=== PATIENT | male | born 1970 | race African-American/Black ===

== ENCOUNTER 2017-09-17 01:12 | Emergency (ER) | payer SELFPAY ==
[2017-09-17] MEDS ORDERED: HYDROcodone/Acetaminophen 10/325 mg Tablet ONE (01:38)
[2017-09-17] MEDS ORDERED: Dexamethasone 4 MG TAB ONE (01:38)
[2017-09-17] MEDS ORDERED: Ibuprofen 800 MG TAB ONE (01:38)
== END 2017-09-17 01:42 | disposition home or self-care (01) ==
LOC: MADERS 01:12
DX: M70.20 Olecranon bursitis, unspecified elbow (principal); F17.210 Nicotine dependence, cigarettes, uncomplicated
CPT/HCPCS: 99283; J8540

== ENCOUNTER 2018-10-29 19:52 | Emergency (ER) | payer SELFPAY ==
--- NOTE | 2018-10-29 21:10 | RAD ---
LEFT KNEE TWO VIEWS: 10/29/18 COMPARISON: None. HISTORY: Knee swelling for two weeks. FINDINGS: There is postoperative hardware associated with the patella. There is severe patellofemoral joint spa ce narrowing with posterior patellar osteophyte formation. No acute fracture or dislocation. Small k nee joint effusion noted. IMPRESSION: Small knee joint effusion. Postoperative changes with no acute fracture or dislocation. POS: [facility]
[2018-10-29] MEDS ORDERED: Ibuprofen 800 MG TAB ONE (21:14)
[2018-10-29] MEDS ORDERED: Dexamethasone 4 MG TAB ONE (21:14)
[2018-10-29] MEDS ORDERED: HYDROcodone/Acetaminophen 10/325 mg Tablet ONE (21:14)
[2018-10-29] MEDS ORDERED: Acetaminophen 325 MG TAB ONE (21:14)
--- NOTE | 2018-10-29 21:31 | RAD ---
TWO VIEWS OF THE RIGHT KNEE: 10/29/18 COMPARISON: None. HISTORY: Pain and swelling. FINDINGS: There is a small nonspecific knee joint effusion. There is prominent patellofemoral change with poste rior patellar osteophyte formation. No fracture or dislocation. IMPRESSION: Patellofemoral joint space narrowing/degenerative change with small knee joint effusion. No acute fra cture or dislocation. POS: [facility]
== END 2018-10-29 21:25 | disposition home or self-care (01) ==
LOC: MADERS 19:52
DX: M13.0 Polyarthritis, unspecified (principal); F17.210 Nicotine dependence, cigarettes, uncomplicated
CPT/HCPCS: J8540

== ENCOUNTER 2018-11-17 22:25 | Emergency (ER) | payer SELFPAY ==
[2018-11-17] MEDS ORDERED: Ibuprofen 800 MG TAB ONE (22:51)
[2018-11-17] MEDS ORDERED: HYDROcodone/Acetaminophen 5/325 mg Tablet ONE (22:51)
== END 2018-11-17 23:00 | disposition home or self-care (01) ==
LOC: MADERS 22:25
DX: S86.911A Strain of unspecified muscle(s) and tendon(s) at lower leg level, right leg, initial encounter (principal); F17.210 Nicotine dependence, cigarettes, uncomplicated; I10 Essential (primary) hypertension; X50.9XXA Other and unspecified overexertion or strenuous movements or postures, initial encounter
CPT/HCPCS: 99283

== ENCOUNTER 2021-02-19 10:20 | Outpatient (CLI) | payer OTHER | END 2021-02-19 10:21 | disposition home or self-care (01) | LOC: MADRAD 10:20 | PROVIDERS: ATTEND Family Medicine | DX: M65.312 Trigger thumb, left thumb (principal); M65.342 Trigger finger, left ring finger; M19.042 Primary osteoarthritis, left hand ==

== ENCOUNTER 2025-06-06 07:56 | Outpatient (CLI) | payer MEDICAID ==
[2025-06-06 08:47] LABS: ALT (SGPT) 18 U/L (Less than 45); AST (SGOT) 19 U/L (11-34); Albumin 3.9 g/dL (3.1-4.5); Alkaline Phosphatase 80 U/L (40-110); Anion Gap 13 mmol/L (10-20); BUN (Urea Nitrogen) 19 mg/dL (8.4-25.7); Bilirubin, Direct 0.2 mg/dL (0.1-0.3); Bilirubin, Total 0.3 mg/dL (0.3-1.2); Calc. Creatinine Clearance 0 mL/min (70-130); Calcium 8.8 mg/dL (7.8-10.44); Carbon Dioxide 22 mmol/L (22-29); Chloride 109 mmol/L (98-107); Glucose 147 mg/dL (70-105); Potassium 4.0 mmol/L (3.5-5.1); Sodium 140 mmol/L (136-145)
== END 2025-06-06 07:57 | disposition home or self-care (01) ==
LOC: MADLAB 07:56
PROVIDERS: ATTEND Family Medicine
DX: I10 Essential (primary) hypertension (principal); E78.2 Mixed hyperlipidemia
CPT/HCPCS: 36415; 80048; 80076